=== PATIENT | female | born 1975 | race Caucasian/White ===

== ENCOUNTER → 2024-10-21 | Emergency (ER) | payer MEDICAID ==
[~2024-10-21] VITALS: Ht 162.6 cm; Wt 66.7 kg
[2024-10-22 00:30] VITALS: BP 116/86; TEMP 98.1; O2SAT 99
== END | disposition left against medical advice (07) ==
LOC: ER 23:37
DX: M25.559 Pain in unspecified hip (principal); M54.9 Dorsalgia, unspecified; Z53.21 Procedure and treatment not carried out due to patient leaving prior to being seen by health care provider